=== PATIENT | female | born 1985 | race Two or more races ===

== ENCOUNTER 2025-06-02 12:56 | Emergency (ER) | payer MEDICAID, OTHER ==
[~2025-06-02] VITALS: Ht 170.2 cm; Wt 83.9 kg
--- NOTE | 2025-06-02 14:13 | ED.PDOC ---
History of Present Illness(SKN HPI Comments A 39 YEAR OLD FEMALE PRESENTS TO THE ED WITH COMPLAINT OF INSECT BITE. PATIENT STATES THAT SHE HAD A INSECT BITE LAST TEN 5 DAYS PRIOR. PATIENT STATES SHE NOTICED A BITE BY HER LEFT INNER BITE AREA. PATIENT STATES SHE WENT TO URGENT CARE AND STATES SHE WAS GIVEN ANTIBIOTIC BACTRIM AND NORCO. PATIENT STATES DESPITE TAKING THESE MEDICATIONS SHE HAS CONTINUED TO HAVE PAIN AND HAS BEEN FEELING NAUSEOUS. PATIENT HAS NOTED BITE DIPTI ON LEFT INNER BY AREA. PATIENT STATES SHE WAS BIT IN THE PAST BY A BROWN RECLUSE SPIDER. PATIENT DENIES FEVER, CHILLS, SHORTNESS OF BREATH, CHEST PAIN, ABDOMINAL PAIN, VOMITING, HEADACHE, OR OTHER COMPLAINTS. NO OTHER SYMPTOMS OR MODIFYING FACTORS AT THIS TIME. PATIENT IS ALERT, ORIENTED X 4, AND HAS STEADY GAIT. Chief Complaint: Insect Bite Time Seen by MD: 14:06 Primary Care Provider: YOUNG History of Present Illness: Medications, Allergies Allergies: Coded Allergies: NO KNOWN ALLERGIES (Unverified , 05/03/14) Home Meds Active Scripts Ondansetron Odt 4MG Tab (ZOFRAN PO) 4 Mg Tb, 4 MG PO BID, #14 TAB ODT TAB-DISSOLVE IN MOUTH, THEN SWALLOW Prov:TASHA CHILDRESS 06/02/25 Cephalexin Monohydrate (Cephalexin) 500 Mg Cap, 1 CAP PO QID, #40 CAP Prov:TASHA CHILDRESS 06/02/25 Information Source: Patient Mode of Arrival: Ambulatory Brought in by: SELF Severity: Moderate Timing: Days Duration: Since onset, Days Prehospital treatment: Treatment Location: Extremities (LEFT INNER THIGH ) Mechanism: Insect, Spider Developed: Other (RED BUMP ) Occurence: Outdoors Retained Foreign Body: No Wound Type: Other Tetanus: UTD Associated Signs and Symptoms: Redness, Pain Past Medical History PAST MEDICAL HISTORY: Asthma, DM Surgical History: Denies all surgeries PHYS THERAPIST History: No Pertinent PHYS THERAPIST History Family History Family History: Unknown Social History Smoker: Cigarettes Alcohol: Denies ETOH Use Drugs: Denies Drug Use Lives In: Home Constitutional: reports: others (ANXIOUS ); denies: chills, diaphoresis, fatigue, fever, malaise, sweats, weakness EENTM: denies: blurred vision, double vision, ear bleeding, ear discharge, ear drainage, ear pain, ear ringing, eye pain, eye redness, hearing loss, mouth pain, mouth swelling, nasal discharge, nose bleeding, nose congestion, nose p ain, photophobia, tearing, throat pain, throat swelling, voice changes, others Respiratory: denies: cough, hemoptysis, orthopnea, SOB at rest, shortness of breath, SOB with excertion, stridor, wheezing, others Cardiovascular: denies: chest pain, dizzy spells, diaphoresis, Dyspnea on exertion, edema, irregular heart beat, left arm pain, lightheadedness, palpitations, PND, syncope, others Gastrointestinal: denies: abdomen distended, abdominal pain, blood streaked bowels, constipated, diarrhea, dysphagia, difficulty swallowing, hematemesis, melena, nausea, poor appetite, poor fluid intake, rectal bleeding, rectal pain, vomiting, others Genitourinary: denies: abnormal vagina bleeding, burning, dyspareunia, dysuria, flank pain, frequency, hematuria, incontinence, pain, , vagina discharge, urgency, others Neurological: denies: dizziness, fainting, headache, left sided numbness, left sided weakness, numbness, paresthesia, pre-existing deficit, right sided numbness, right sided weakness, seizure, speech problems, tingling, tremors, weakness, others Musculoskeletal: denies: back pain, gout, joint pain, joint swelling, muscle pain, muscle stiffness, neck pain, others Integumetry: reports: lumps, wounds (LEFT LEG INNER THIGH); denies: bruises, change in color, change in hair/nails, dryness, laceration, lesions, rash, othe rs Allergic/Immunocompromised: denies: Difficulty Healing, Frequent Infections, Hives, Itching, others Hematologic/Lymphatic: denies: anemia, blood clots, easy bleeding, easy bruising, swollen glands, others Endocrine: denies: excessive hunger, excessive sweating, excessive thirst, excessive urination, flushing, intolerance to cold, intolerance to heat, unexplained weight gain, unexplained weight loss, others Psychiatric: denies: anxiety, bipolar disorder, depression, hopeless, panic disorder, schizophrenia, sleepless, suicidal, others All Other Systems: Reviewed and Negative Physical Exam General Appearance: Mild Distress, Obese HEENT: Normal ENT Inspection, PERRL/EOMI, Pharynx Normal, TMs Normal Neck: Full Range of Motion, Non-Tender, Normal, Normal Inspection Respiratory: Chest Non-Tender, Lungs Clear, No Accessory Muscle Use, No Respiratory Distress, Normal Breath Sounds Cardiovascular: No Edema, No JVD, No Murmur, No Gallop, Normal Peripheral Pulses, Regular Rate/Rhythm Breast Exam: Deferred Gastrointestinal: No Organomegaly, Non Tender, No Pulsatile Mass, Normal Bowel Sounds, Soft Genitalia: Deferred Pelvic: Deferred Rectal: Deferred Extremities: No calf tenderness, Normal capillary refill, Normal range of motion, No pedal edema, Tender (WITH A RED BUMP ON LEFT UPPER INNER THIGH, NO PUS DRAINAGE. ) Musculoskeletal : Apperance: Normal Neurologic: Alert, lna II-XII nml as Tested, No Motor Deficits, Normal Affect, Normal Mood, No Sensory Deficits Cerebellar Function: Normal Reflexes: Normal Skin: Dry, Normal Color, Warm, Wounds ([id number] INSECT BITE WOUND WITH LOCALIZED REDNESS, HARDNESS AND TENDERNESS ON LEFT INNER THIGH, NO PUS DRAINAGE. ) Peripheral Pulses: 2+ carotid (R), 2+ carotid (L), 2+ dorsalis pedis (R), 2+ dorsalis pedis (L) Lymphatic: No Adenopathy Was a procedure done? Was a procedure done?: No Differential Diagnosis (INTG) Differential Diagnosis: Abrasion, Cellulitis, Puncture Wound, Other (INSECT BITE) Differential Diagnosis: Impetigo, Intertrigo X-Ray, Labs, Meds, VS Vital Signs Date Time Temp Pulse Resp B/P (MAP) Pulse Ox O2 Delivery O2 Flow Rate FiO2 06/02/25 13:01 98.9 84 17 132/92 96 98.9 X-Ray, Labs, Meds, VS Comment COURSE: EXTERNAL MEDICAL RECORDS REVIEWED: [NONE] INDEPENDENT HISTORIANS: [NONE] SOCIAL DETERMINANTS OF HEALTH: [NONE] LABS ORDERED: NONE REVIEWED AND INTERPRETED RESULTS: NONE IMAGING ORDERED: NONE TREATMENTS ORDERED: ZOFRAN 4 MG, ROCEPHIN 1 G PROCEDURES PERFORMED: NONE CRITICAL CARE TIME: NONE I HAVE DISCUSSED THE PATIENT WITH THE ATTENDING PHYSICIAN, DR. POLLARD, HE AGREES WITH THE PATIENT'S PLAN OF CARE AND DISPOSITION. BASED ON HISTORY OF PRESENT ILLNESS, AND PHYSICAL EXAM, PATIENT WILL BE DISCHARGED HOME. DISCUSSED PLAN FOR DISCHARGE HOME WITH RX [KEFLEX AND ZOFRAN ]. MEDICATION WARNINGS GIVEN. SHARED DECISION MAKING: DISCUSSED WITH PATIENT THAT THEIR WORKUP WAS NORMAL. PATIENT INSTRUCTED TO FOLLOW UP WITH PRIMARY CARE PROVIDER IN 1-2 DAYS FOR RE- EVALUATION OF SYMPTOMS. PATIENT VERBALIZES UNDERSTANDING TO RETURN TO ED FOR NEW OR WORSENING SYMPTOMS OR IF FOLLOW UP WITH PCP CANNOT BE OBTAINED. PATIENT FEELS COMFORTABLE GOING HOME AT THIS TIME. ALL QUESTIONS ADDRESSED AT TIME OF DISCHARGE. Time of 1ST Reevaluation: 14:30 Reevaluation 1ST: Improved Patient Education/Counseling: Diagnosis, Treatment, Need For Follow Up Family Education/Counseling: Diagnosis, Treatment, No Family Present Medical Screening: No EMC Exist At This Time SEPSIS Sepsis Screen Date sepsis recognized/suspect: Jun 02, 2025 Time Sepsis recognized/suspect: 1306 Recent Procedure: No On Antibiotic Therapy: No Respiratory Rate >20: No Heart Rate >90: No Temp<36 C (96.8 F) or >38.3 C: No SBP <90 or MAP <65 mmHG: No New Acute Mental Status Change: No Is the patient on CPAP, BIPAP,: No Physician Orders Ceftriaxone Sodium (Rocephin) (06/02/25 14:15) Ondansetron Po (Zofran Po) (06/02/25 14:15) Vital Signs Date Time Temp Pulse Resp B/P (MAP) Pulse Ox O2 Delivery O2 Flow Rate FiO2 06/02/25 13:01 98.9 84 17 132/92 96 98.9 Departure 1 Departure Time of Disposition: 14:30 Impression: Primary Impression: Infected wound of left thigh due to nonvenomous insect bite Disposition: 01 HOME / SELF CARE / HOMELESS Condition: Stable Additional Instructions: INSTRUCTIONS: FOLLOW-UP WITH PCP IN 1 TO 2 DAYS. TAKE MEDICATIONS PRESCRIBED. RETURN TO ED FOR ANY NEW OR WORSENING SYMPTOMS. e-Prescriptions Ondansetron Odt 4MG Tab (ZOFRAN PO) 4 Mg Tb 4 MG PO BID, #14 TAB ODT TAB-DISSOLVE IN MOUTH, THEN SWALLOW Prov: TASHA CHILDRESS 06/02/25 Cephalexin Monohydrate (Cephalexin) 500 Mg Cap 1 CAP PO QID, #40 CAP Prov: TASHA CHILDRESS 06/02/25 Discharged With: Self, Relative Critical Care Note Critical Care Time?: No Stability Stability form required: No Heart Score Heart Score: Heart Score Response (Comments) Value History N/A 0 EKG N/A 0 Age N/A 0 Risk Factors N/A 0 Troponin N/A 0 Total 0 I personally scribed for TASHA CHILDRESS ([email or web address]) on 06/02/25 at 14:13. Electronically submitted by Nikkie Kunz (MARY). TASHA CHILDRESS Jun 02, 2025 14:13
[2025-06-02] MEDS ORDERED: ZOFR4T PO (14:14)
[2025-06-02] MEDS ORDERED: CEPH500C PO (14:14)
[2025-06-02] MEDS: cefTRIAXone SOD 1,000 MG VL IM ONE (14:18)
[2025-06-02] MEDS: ONDANSETRON ODT 4 MG TAB PO ONE (14:18)
[2025-06-02 14:38] VITALS: BP 132/92; PULSE 84; RESP 17; TEMP 98.9; O2SAT 96
== END 2025-06-02 14:39 | disposition home or self-care (01) ==
LOC: ER 12:56
DX: L08.9 Local infection of the skin and subcutaneous tissue, unspecified (principal); F17.210 Nicotine dependence, cigarettes, uncomplicated; E11.9 Type 2 diabetes mellitus without complications; W57.XXXA Bitten or stung by nonvenomous insect and other nonvenomous arthropods, initial encounter; Y93.89 Activity, other specified; Y92.89 Other specified places as the place of occurrence of the external cause; Y99.8 Other external cause status
CPT/HCPCS: 82947; 96372; 99283; J0696; Q0162

== ENCOUNTER 2025-06-29 21:29 | Emergency (ER) | payer MEDICAID, OTHER ==
[~2025-06-29] VITALS: Ht 170.2 cm; Wt 80.2 kg
[~2025-06-29 21:29] MED LIST: CEPH500C PO; ZOFR4T PO
[2025-06-29 22:46] VITALS: BP 151/91; PULSE 67; RESP 16; RESP 19; TEMP 98.1; O2SAT 96; O2SAT 98
[2025-06-29] MEDS: KETOROLAC TROMETH 30 MG/ML 1ML VIAL IM ONE (22:56)
[2025-06-29] MEDS: methylPREDNISolone SOD SUCC 125 MG/2 ML VL IM ONE (22:56)
[2025-06-29] MEDS ORDERED: IBUP-1455 PO (23:16)
[2025-06-29] MEDS ORDERED: CYCL-837 PO (23:16)
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
== END 2025-06-29 23:51 | disposition home or self-care (01) ==
LOC: ER 21:29
DX: M25.50 Pain in unspecified joint (principal); M79.18 Myalgia, other site; E11.9 Type 2 diabetes mellitus without complications; F17.210 Nicotine dependence, cigarettes, uncomplicated; J45.909 Unspecified asthma, uncomplicated; V89.2XXA Person injured in unspecified motor-vehicle accident, traffic, initial encounter; Y93.I9 Activity, other involving external motion; Y92.488 Other paved roadways as the place of occurrence of the external cause; Y99.8 Other external cause status
CPT/HCPCS: 82947; 96372; 99284; J1885; J2919; 82962